=== PATIENT | male | born 1935 | race Caucasian/White ===

== ENCOUNTER 2016-12-06 13:04 | Emergency (ER) | payer MEDICARE ==
[2016-12-06 13:47] LABS: #Eosinphils 1.1 thou/uL (0.0-0.7); #Lymphocytes 2.4 thou/uL (1.20-3.40); #Monocytes 0.8 thou/uL (0.11-0.59); #Neutrophils 6.2 thou/uL (1.40-6.50); %Basophils 0.2 % (0.0-1.0); %Eosinophils 10.3 % (0.0-10.0); %Lymphocytes 22.8 % (21.0-51.0); %Monocytes 7.9 % (0.0-10.0); Hematocrit 43.7 % (42.0-52.0); Mean Platelet Volume 6.7 fL (7.4-10.4); Red Blood Cell (RBC) Count 4.79 mill/uL (4.70-6.10); White Blood Cell (WBC) Count 10.5 thou/uL (4.8-10.8)
--- NOTE | 2016-12-06 14:01 | RAD ---
FRONTAL RADIOGRAPH CHEST: 12/06/2016 HISTORY: Shortness of breath. Dyspnea. COMPARISON: 07/15/2016 FINDINGS: Midline sternotomy wires and mediastinal clips are present. Heart and mediastinal contours are stab le. There is no pneumothorax evident. Increased linear interstitial density noted in the perihilar regions in both lung bases, right great er than left, similar when compared to the prior examination. Aeration within both lung bases may h ave slightly worsened when compared to 07/13/2016. IMPRESSION: Interstitial prominence in the perihilar regions in both lung bases, right greater than left, slight ly progressed since the prior exam. All findings may be on the basis of chronic interstitial diseas e. A mild degree of superimposed infectious pneumonitis or pulmonary edema cannot be fully excluded . POS: [facility]
[2016-12-06 14:15] LABS: ALT (SGPT) 18 U/L (8-55); AST (SGOT) 21 U/L (5-34); Alkaline Phosphatase 106 U/L (40-150); Anion Gap 11 mmol/L (10-20); BUN (Urea Nitrogen) 13 mg/dL (8.4-25.7); Bilirubin, Total 0.8 mg/dL (0.2-1.2); CK (CPK) 44 U/L (30-200); Calc. Creatinine Clearance 0 mL/min (70-130); Calcium 9.3 mg/dL (7.8-10.44); Carbon Dioxide 31 mmol/L (23-31); Chloride 101 mmol/L (98-107); Estimated GFR-MDRD 89; Globulin 3.7 g/dL (2.4-3.5); Protein, Total 6.7 g/dL (5.8-8.1)
[2016-12-06 14:20] LABS: Troponin I 0.017 ng/mL (< 0.028)
--- NOTE | 2016-12-06 15:50 | CT ---
CTA CHEST: History: 81-year-old with history of dyspnea. Technique: Contrast enhanced CTA of the chest performed. 2D and 3D reconstructed images performed on an independent 3D workstation. FINDINGS: Calcified gallstones seen. There is extensive diffuse interstitial fibrotic changes. This appears to be worse than on the previ ous comparison CT in both the right and left lungs from approximately 5 months earlier. Extensive coronary artery calcification is seen. No evidence of filling defects seen in the pulmonar y arteries to suggest pulmonary emboli. IMPRESSION: Increasing diffuse interstitial fibrotic changes. POS: [facility]
[2016-12-06] MEDS ORDERED: ISOVUE-370 76%-LOCM 1 ML ONE (16:36)
== END 2016-12-06 16:41 | disposition home or self-care (01) ==
LOC: ERS 13:04
DX: R06.02 Shortness of breath (principal); I25.2 Old myocardial infarction; E10.9 Type 1 diabetes mellitus without complications; I10 Essential (primary) hypertension; Z79.899 Other long term (current) drug therapy
CPT/HCPCS: 36415; 71010; 71275; 80053; 82553; 83880; 84484; 85025; 93005; 94760

== ENCOUNTER 2017-02-02 12:42 | Outpatient (CLI) | payer MEDICARE | END 2017-02-02 12:43 | disposition home or self-care (01) | LOC: CP 12:42 | PROVIDERS: ATTEND Internal Medicine Critical Care Medicine | DX: J84.112 Idiopathic pulmonary fibrosis (principal) | CPT/HCPCS: 94010; 94727; 94729 ==